=== PATIENT | male | born 1975 | race Caucasian/White ===

== ENCOUNTER → 2016-10-14 11:08 | Outpatient (CLI) | payer MEDICARE ==
[2015-10-18 12:44] VITALS: BMI 25.4
[~2016-10-14 11:08] MED LIST: NORCO 7.5/325 T1 TA1 PO; NORVASC5 MG PO; PERCOCET 10/3251 TA1 PO; PROTONIX40 MG PO; SEROQUEL400 MG PO; VALIUM10 MG PO; VICOPROFEN 7.5/1 TAB PO
== END | disposition home or self-care (01) ==
LOC: D.RAD 09-30 13:00
DX: J70.9 Respiratory conditions due to unspecified external agent (principal)

== ENCOUNTER → 2017-05-11 17:02 | Outpatient (CLI) | payer MEDICARE ==
[2015-10-18 12:44] VITALS: BMI 25.4
[2017-05-11 18:01] LABS: CHOL - HDL RATIO 5.7 ratio (2.3-4.9); LDL-HDL RATIO 3.5 ratio (1.5-3.5)
== END | disposition home or self-care (01) ==
LOC: D.LABREF 17:02
PROVIDERS: Internal Medicine Cardiovascular Disease
DX: E78.5 Hyperlipidemia, unspecified (principal)

== ENCOUNTER → 2018-08-12 09:45 | Outpatient (CLI) | payer MEDICARE ==
[2015-10-18 12:44] VITALS: BMI 25.4
[~2018-08-12 09:45] MED LIST changes: +CIPRO500 MG PO; +FLAGYL500 MG PO; +KLONOPIN1 MG PO; +NEURONTIN 300300 MG; +OMEPRAZOLE20 M1 PO; +PRAVACHOL20 MG; +ROBAXIN500 MG PO; +TORADOL10 MG PO; +ZESTRIL10 MG PO; +ZOFRAN ODT4 MG/UDTAB PO
== END | disposition home or self-care (01) ==
LOC: D.CT 09:45
DX: Z87.442 Personal history of urinary calculi (principal)

== ENCOUNTER → 2018-08-13 09:16 | Outpatient (CLI) | payer MEDICARE ==
[2015-10-18 12:44] VITALS: BMI 25.4
[2018-08-13 12:01] LABS: MEAN PLATELET VOLUME 11.2 fL (7.4-10.4)
[2018-08-13 15:18] LABS: WBC 10.2 10x3/uL (4.8-10.8)
[2018-08-13 15:19] LABS: HEMATOCRIT 44.7 % (42.0-54.0); HEMOGLOBIN 15.6 g/dL (13.5-17.5); LYMPHOCYTES 15.5 % (15-50); MCH 32.4 pg (26.0-34.0); MCHC 34.9 g/dL (31.0-37.0); MCV 92.7 fL (80.0-100.0); NEUTROPHILS 74.5 % (40-80); PLATELET COUNT 222 10x3/uL (130-400); RBC 4.82 10x6/uL (4.20-6.10); RDW 13.4 % (11.5-14.5)
[2018-08-13 15:20] LABS: BASOPHILS 0.3 % (0-2); EOSINOPHILS 2.8 % (0-7); IMMATURE GRANULOCYTES 0.6 % (0-5); MONOCYTES 6.3 % (2-11)
== END | disposition home or self-care (01) ==
LOC: D.LAB 08-11 08:15 → D.RAD 08:00
PROVIDERS: Internal Medicine Gastroenterology
DX: R10.13 Epigastric pain (principal); K21.9 Gastro-esophageal reflux disease without esophagitis; K92.1 Melena

== ENCOUNTER 2018-08-16 21:08 | Emergency (ER) | payer MEDICARE ==
[~2018-08-16] VITALS: Ht 195.6 cm; Wt 90.9 kg
[~2018-08-16 21:08] MED LIST changes: -CIPRO500 MG PO; -FLAGYL500 MG PO; -KLONOPIN1 MG PO; -NEURONTIN 300300 MG; -OMEPRAZOLE20 M1 PO; -PRAVACHOL20 MG; -ROBAXIN500 MG PO; -TORADOL10 MG PO; -ZESTRIL10 MG PO; -ZOFRAN ODT4 MG/UDTAB PO
[2018-08-16 21:27] VITALS: Ht 195.6 cm; Wt 90.9 kg
[2018-08-16] MEDS ORDERED: ZESTRIL10 MG PO (21:29)
[2018-08-16] MEDS ORDERED: PRAVACHOL20 MG (21:30)
[2018-08-16] MEDS ORDERED: OMEPRAZOLE20 M1 PO (21:30)
[2018-08-16] MEDS ORDERED: KLONOPIN1 MG PO (21:30)
[2018-08-16] MEDS ORDERED: NEURONTIN 300300 MG (21:30)
[2018-08-16] MEDS ORDERED: ROBAXIN500 MG PO (21:31)
[2018-08-16 22:41] LABS: APPEARANCE CLEAR (CLEAR); BILIRUBIN NEGATIVE (NEGATIVE); COLOR YELLOW (YELLOW); GLUCOSE NEGATIVE (NEGATIVE); KETONE NEGATIVE (NEGATIVE); NITRITE NEGATIVE (NEGATIVE); PROTEIN TRACE mg/dL (NEGATIVE); UROBILINOGEN NORMAL (NORMAL)
[2018-08-16 22:41] LABS: BASOPHILS 0.2 % (0-2); EOSINOPHILS 2.2 % (0-7); HEMOGLOBIN 15.6 g/dL (13.5-17.5); IMMATURE GRANULOCYTES 0.2 % (0-5); LYMPHOCYTES 31.7 % (15-50); MCH 32.4 pg (26.0-34.0); MCHC 34.7 g/dL (31.0-37.0); MCV 93.6 fL (80.0-100.0); MEAN PLATELET VOLUME 10.2 fL (7.4-10.4); MONOCYTES 6.8 % (2-11); NEUTROPHILS 58.9 % (40-80); PLATELET COUNT 232 10x3/uL (130-400); RBC 4.81 10x6/uL (4.20-6.10); WBC 9.3 10x3/uL (4.8-10.8)
[2018-08-16 22:43] LABS: BACTERIA FEW /hpf (NONE SEEN); EPITHELIAL CELLS 0-5 /hpf (0-5); RED CELLS - URINE 0-5 /hpf (0-5)
[2018-08-16 22:44] LABS: CALCIUM OXALATE CRYSTALS 0-5 /hpf (NONE SEEN)
[2018-08-16 23:00] LABS: ALBUMIN 3.7 g/dL (3.4-5.0); ALKALINE PHOSPHATASE 52 U/L (46-116); ALT (SGPT) 24 U/L (10-68); BILIRUBIN - TOTAL 0.39 mg/dL (0.2-1.3); CALC OSMOLALITY 280 mosm/kg (275-300); CALCIUM 8.3 mg/dL (8.5-10.1); CHLORIDE - SERUM 103 mmol/L (98-107); CREATININE - SERUM 1.1 mg/dL (0.6-1.3); GLUCOSE 100 mg/dL (74-106); POTASSIUM - SERUM 4.1 mmol/L (3.5-5.1); PROTEIN - SERUM 7.6 g/dL (6.4-8.2); SODIUM 139 mmol/L (136-145); UREA NITROGEN 21 mg/dL (7-18); eGFR NON AFRICAN AMERICAN 78 mL/min (90-120)
[2018-08-17] MEDS ORDERED: CIPRO500 MG PO (00:35)
[2018-08-17] MEDS ORDERED: TORADOL10 MG PO (00:35)
[2018-08-17] MEDS ORDERED: FLAGYL500 MG PO (00:35)
[2018-08-17 02:23] VITALS: BP 125/87
== END 2018-08-17 01:01 | disposition home or self-care (01) ==
LOC: D.ER 21:08
PROVIDERS: Family Medicine
DX: K52.9 Noninfective gastroenteritis and colitis, unspecified (principal); N41.9 Inflammatory disease of prostate, unspecified; F17.200 Nicotine dependence, unspecified, uncomplicated

== ENCOUNTER → 2018-08-20 14:35 | Outpatient (CLI) | payer MEDICARE ==
[2018-08-16 21:27] VITALS: BMI 23.7
[~2018-08-20 14:35] MED LIST changes: +CIPRO500 MG PO; +FLAGYL500 MG PO; +KLONOPIN1 MG PO; +NEURONTIN 300300 MG; +OMEPRAZOLE20 M1 PO; +PRAVACHOL20 MG; +ROBAXIN500 MG PO; +TORADOL10 MG PO; +ZESTRIL10 MG PO; +ZOFRAN ODT4 MG/UDTAB PO
== END | disposition home or self-care (01) ==
LOC: D.CT 14:35
DX: Z87.442 Personal history of urinary calculi (principal)

== ENCOUNTER 2018-08-27 00:21 | Emergency (ER) | payer MEDICARE ==
[~2018-08-27] VITALS: Ht 195.6 cm; Wt 86.8 kg
[~2018-08-27 00:21] MED LIST changes: -ZOFRAN ODT4 MG/UDTAB PO
[2018-08-27 00:25] VITALS: Ht 195.6 cm; Wt 86.8 kg
[2018-08-27 00:57] LABS: BASOPHILS 0.2 % (0-2); EOSINOPHILS 0 % (0-7); IMMATURE GRANULOCYTES 0.2 % (0-5); LYMPHOCYTES 21.8 % (15-50); MCH 32.5 pg (26.0-34.0); MCHC 34.8 g/dL (31.0-37.0); MCV 93.3 fL (80.0-100.0); MEAN PLATELET VOLUME 10.1 fL (7.4-10.4); MONOCYTES 7.1 % (2-11); NEUTROPHILS 70.7 % (40-80); PLATELET COUNT 231 10x3/uL (130-400); RBC 4.93 10x6/uL (4.20-6.10); RDW 13.1 % (11.5-14.5); WBC 11.2 10x3/uL (4.8-10.8)
[2018-08-27 01:08] LABS: APTT 28.5 SECONDS (22.8-39.4); INR 1.14 (0.85-1.17); PROTIME 14.1 SECONDS (11.6-15.0)
[2018-08-27 01:10] LABS: ALBUMIN 3.8 g/dL (3.4-5.0); ALKALINE PHOSPHATASE 44 U/L (46-116); ALT (SGPT) 19 U/L (10-68); BILIRUBIN - TOTAL 0.44 mg/dL (0.2-1.3); CALC OSMOLALITY 281 mosm/kg (275-300); CALCIUM 8.7 mg/dL (8.5-10.1); CARBON DIOXIDE 28.2 mmol/L (21.0-32.0); CHLORIDE - SERUM 104 mmol/L (98-107); CREATININE - SERUM 1.1 mg/dL (0.6-1.3); GLUCOSE 104 mg/dL (74-106); POTASSIUM - SERUM 3.7 mmol/L (3.5-5.1); PROTEIN - SERUM 7.3 g/dL (6.4-8.2); SODIUM 141 mmol/L (136-145); UREA NITROGEN 14 mg/dL (7-18); eGFR NON AFRICAN AMERICAN 78 mL/min (90-120)
[2018-08-27] MEDS ORDERED: ZOFRAN ODT4 MG/UDTAB PO (03:22)
[2018-08-27 03:57] VITALS: BP 124/71
== END 2018-08-27 03:57 | disposition home or self-care (01) ==
LOC: D.ER 00:21
PROVIDERS: Family Medicine
DX: N50.812 Left testicular pain (principal); K62.5 Hemorrhage of anus and rectum; J44.9 Chronic obstructive pulmonary disease, unspecified; Z86.19 Personal history of other infectious and parasitic diseases; F17.200 Nicotine dependence, unspecified, uncomplicated

== ENCOUNTER 2018-11-12 02:55 | Observation (INO) | payer MEDICARE ==
--- NOTE | ~2018-11-12 | HEMODYNAMI ---
PATIENT:NOEMI LOYD MEDICAL RECORD: [id number] : 73 [facility] ADMISSION DATE: 11/12/18 Generatedon:11/14/201812:23 Patient name: NOEMI LOYD Patient #: [id number] SSN: : 1975 Date of study: 11/14/2018 Page: Of Hemodynamic Procedure Report Patient Data Patient Demographics Procedure consent was obtained First Name: NOEMI Gender: Male Last Name: EVERT : 1975 [facility] Initial: AYDIN Age: 42 year(s) Patient #: [id number] Race: Unknown Additional ID: [id number] Contact details [address]: [address] [place] [address] State: [place] City: [place] Zip code: [address] Past Medical History Allergies Allergen Reaction Date Comments Reported Other allergy 11/14/2018 [facility] Admission Admission Data Admission Date: 11/12/2018 Admission Time: 5:02 Room #: D.2107 Lab Results Lab Result Date: 11/14/2018 Lab Result Time: 0:00 Biochemistry Name Units Result Min Max BUN mg/dl 17 --(---*)-- 7 18 Creatinine mg/dl 0.9 --(-*--)-- 0.6 1.3 CBC Name Units Result Min Max Hematocrit % 43.6 --(*---)-- 42 54 Hemoglobin g/dl 15 --(-*--)-- 13.5 17.5 Procedure Procedure Types Cath Procedure Diagnostic Procedure LHC LHC w/Coronaries Procedure Description Procedure Date Procedure Date: 11/14/2018 Procedure Start Time: 12:16 Procedure End Time: 12:23 Procedure Staff Name Function Kaiser Cedillo MD Performing Physician Roosevelt Magdaleno RT Monitor Malu Knox RT Scrub Trey Wayne RN Nurse Procedure Data Cath Procedure Fluoroscopy Diagnostic fluoroscopy Total fluoroscopy Time: 0.7 time: 0.7 min min Diagnostic fluoroscopy Total fluoroscopy dose: 264 dose: 264 mGy mGy Contrast Material Contrast Material Type Amount (ml) Isovue 300 21 Entry Location Entry Primary Successful Side Size Upsize Upsize Entry Closure Tripp ccessful Closure Location (Fr) 1 (Fr) 2 (Fr) Remarks Device Remarks Radial Right 6 Fr Mechanical artery Short Compression Estimated blood loss: 10 ml Diagnostic catheters Device Type Used For End Catheter Placement DIAGNOSTIC Cary 110cm 5 Procedure Fr catheter ([id number]) Procedure Complications No complications Procedure Medications Medication Administration Route Dosage Oxygen etCO2 Nasal cannula 2 l/min Lidocaine 2% added to field 20 Heparin Flush Bag added to field 2 bags (1000units/500ml NS) 0.9% NaCl I.V. 100 ml/hr Radial Cocktail I.A. 1 syringe (Verapamil 2mg/Nitro 400mcg/Heparin 1500units) Versed I.V. 2 mg Fentanyl I.V. 100 mcg Versed I.V. 2 mg Fentanyl I.V. 100 mcg Hemodynamics Rest HGB: 15 (g/dl) Heart Rate: 55 (bpm) Pressure Samples Time Site Value (mmHg) Purpose Heart Use Rate(bpm) 12:19 AO 97/62(79) Snapshot 58 Snapshots Pre Cath Intra NCS Post Cath Vital Signs Time Heart Resp SPO2 etCO2 NIBP Rhythm Pain Sedation Rate (ipm) (%) (mmHg) (mmHg) Status Level (bpm) 12:09:15 56 29 100 21.6 108/68(80) NSR 0 (11) 10(A) , No pain 12:13:21 56 16 94 0 107/67(83) NSR 0 (11) 10(A) , No pain 12:17:25 51 14 97 29.1 108/61(77) NSR 0 (11) 10(A) , No pain 12:20:46 58 12 96 44.8 Auto NIBP NSR 0 (11) 10(A) off , No pain 12:21:35 55 14 95 32 103/55(82) NSR 0 (11) 10(A) , No pain Medications Time Medication Route Dose Verified Delivered Reason Notes Effectiveness by by 12:10:39 Oxygen etCO2 2 l/min Kaiser Yang used for Nasal Nguyen Wayne reliability specialist cannula 12:10:47 Lidocaine 2% added 20ml Kaiser Saab for local to vial Nguyen Cedillo MD anesthetic field 12:10:53 Heparin Flush added 2 bags Kaiser Saab used for Bag to Nguyen Cedillo MD procedure (1000units/500ml field NS) 12:11:03 0.9% NaCl I.V. 100 Kaiser Yang Per ml/hr Nguyen Wayne RN physician 12:16:09 Versed I.V. 2 mg Kaiser Yang for sedation Nguyen Wayne RN 12:16:17 Fentanyl I.V. 100 mcg Kaiser Yang for sedation Nguyen Wayne RN 12:17:47 Radial Cocktail I.A. 1 Kaiser Saab for (Verapamil syringe Nguyen Cedillo MD vasodilation 2mg/Nitro 400mcg/Heparin 1500units) 12:18:41 Versed I.V. 2 mg Kaiser Yang for sedation Nguyen Wayne RN 12:18:44 Fentanyl I.V. 100 mcg Kaiser Yang for sedation Nguyen Wayne RN Procedure Log Time Note 11:42:21 Signed procedure consent form obtained from patient. 11:42:29 Diagnostic Cath status Urgent 11:42:31 Time tracking: Call back (After hours or weekends) 11:42:35 Plan of Care:Hemodynamics will remain stable., Cardiac rhythm will remain stable., Comfort level will be maintained., Respiratory function will remain adequate., Patient/ family verbilizes understanding of procedure., Procedure tolerated without complication., Recovers from procedure without complications.. 11:43:01 Roosevelt GUERRIER(R) sent for patient. Start room use. 11:52:49 H&P Date Dictated: 11/12/2018 Within 30 days and on chart.. 11:53:03 Patient allergic to Other allergyHALDOL 11:53:27 Lab Result : Creatinine 0.9 mg/dl 11:53:27 Lab Result : BUN 17 mg/dl 11:53:27 Lab Result : Hemoglobin 15 g/dl 11:53:27 Lab Result : Hematocrit 43.6 % 11:59:18 Patient received from Med II to CCL 1 Alert and oriented. Tansferred to table in Supine position. 11:59:19 Warm blankets applied, and chato hugger turned on for patient comfort. 11:59:20 Correct patient and procedure confirmed by team. 11:59:20 ECG and BP/O2 sat monitors applied to patient. 12:08:09 Vital chart was started 12:10:04 Baseline sample Acquired. 12:10:22 Rhythm: sinus bradycardia 12:10:23 Full Disclosure recording started 12:10:24 Pre-procedure instructions explained to patient. 12:10:24 Pre-op teaching completed and patient verbalized understanding. 12:10:27 Family unavailable. 12:10:29 Patient NPO since Midnight. 12:10:31 Is the patient allergic to Iodine/contrast media? No. 12:10:35 Is patient on blood thinner?Yes 12:10:38 ACC The patient was administered the following blood thiners within the last 24 hours: ACCPlavix 12:10:39 Oxygen 2 l/min etCO2 Nasal cannula was administered by Trey Wayne RN; used for procedure; 12:10:40 Patient diabetic? No. 12:10:43 Previous problem with sedation/anesthesia? No ? 12:10:43 Snore? Yes 12:10:47 Lidocaine 2% 20ml vial added to field was administered by Kaiser Cedillo MD; for local anesthetic; 12:10:51 Sleep apnea? Yes 12:10:53 Heparin Flush Bag (1000units/500ml NS) 2 bags added to field was administered by Kaiser Cedillo MD; used for procedure; 12:10:53 Deviated septum? No 12:10:54 Opens mouth fully? Yes 12:11:00 Sticks out tongue? Yes 12:11:03 0.9% NaCl 100 ml/hr I.V. was administered by Trey Wayne RN; Per physician; 12:11:04 Airway obstruction? Yes COPD 12:11:07 Dentures? No ? 12:11:09 Pre procedure: right dorsailis pedis pulse 1+ Palpable, but thready & weak; easily obliterated 12:11:11 Modified Bart's test Ulnar < 7 seconds 12:11:29 Patient pain scale 3/10 Physician notified.. 12:11:34 IV patent on arrival in right forearm with 0.9% NaCl at [facility]. 12:11:36 Lab results completed and on chart. 12:11:39 Right Radial & Right Groin area was prepped with chlora-prep and draped in sterile fashion 12:11:40 Alarms reviewed by R. N. 12:11:41 Sharps counted by scrub and verified by R.N. 12:11:42 Physician paged 12:15:01 --------ALL STOP TIME OUT------ 12:15:01 Final Timeout: patient, procedure, and site verified with staff and physician. All members of the team are in agreement. 12:15:03 Right Radial & Right Groin site verified by team. 12:15:06 Maximum allowable Isovue 300 dose 300ml. Physician notified. (300ml for normal creatinines. For patients with creatinine of 1.7 or higher multiply weight(kg) x 5 divided by creatinine.) 12:15:10 Fire Safety Assessment: A--An alcohol-based skin anteseptic being used preoperatively., C--Open oxygen or nitrous oxide is being used., D--An ESU, laser, or fiber-optic light is being used. 12:15:13 Physical assessment completed. ASA score P 2 - A patient with mild systemic disease as per Kaiser Cedillo MD. 12:15:16 Sedation plan: IV Moderate Sedation Medication:Versed, Fentanyl 12:16:09 Versed 2 mg I.V. was administered by Trey Wayne RN; for sedation; 12:16:17 Fentanyl 100 mcg I.V. was administered by Trey Wayne RN; for sedation; 12:16:18 Use device set Radial Dx or PCI 12:16:19 Tegaderm 4 x 4 (1626W) opened to sterile field. 12:16:20 ACIST Manifold (69016) opened to sterile field. 12:16:20 ACIST Hand Control (63191) opened to sterile field. 12:16:21 ACIST Syringe (71772) opened to sterile field. 12:16:22 Medline Cath Pack ([id number]) opened to sterile field. 12:16:22 Bag Decanter () opened to sterile field. 12:16:22 DIAGNOSTIC WIRE .035 260cm J wire (110270) opened to sterile field. 12:16:23 MBrace Wrist Support ([id number]) opened to sterile field. 12:16:24 SHEATH 6FR Slender (98-1241) opened to sterile field. 12:16:28 Procedure started. 12:16:32 Local anesthetic to right radial artery with Lidocaine 2% by Kaiser Cedillo MD.INITIAL ACCESS ONLY 12:16:52 A 6 Fr Short sheath was inserted into the Right Radial artery 12:16:59 Zero performed for pressure channel P1 12:17:06 A DIAGNOSTIC Cary 110cm 5 Fr catheter ([id number]) was advanced over the wire and used for Procedure. 12:17:47 Radial Cocktail (Verapamil 2mg/Nitro 400mcg/Heparin 1500units) 1 syringe I.A. was administered by Kaiser Cedillo MD; for vasodilation; 12:18:17 LV angiography performed. 12:18:19 LV gram done using MILLS 12:18:26 EF : 60 % 12:18:41 Versed 2 mg I.V. was administered by Trey Wayne RN; for sedation; 12:18:43 Injector settings: Ml/sec: 7, Volume: 15, 12:18:44 Fentanyl 100 mcg I.V. was administered by Trey Wayne RN; for sedation; 12:18:52 LCA angiography performed. 12:19:43 RCA angiography performed. 12:19:44 Catheter removed. 12:19:46 TR BAND Standard (NON45NLS) opened to sterile field. 12:19:55 Sheath removed intact; hemostasis achieved with Mechanical Compression to the Right Radial artery. 12:19:57 Procedure ended.(Physican Out) 12:20:17 Fluoroscopy time 00.70 minutes. 12:20:20 Fluoroscopy dose: 264 mGy 12:20:20 Flurop Dose total: 264 12:20:24 Contrast amount:Isovue 300 21ml. 12:20:26 Sharps counted by scrub and verified by R.N. 12:20:28 TR band inflated with 10cc of air. 12:20:29 Insertion/operative site no bleeding no hematoma. 12:20:31 Post Procedure Pulses reassessed and unchanged 12:20:33 Post-procedure physical assessment completed. ASA score P 2 - A patient with mild systemic disease as per Kaiser Cedillo MD. 12:20:36 Post procedure rhythm: unchanged. 12:20:39 Estimated blood loss: 10 ml 12:20:40 Post procedure instruction explained to patient.Patient verbalizes understanding. 12:20:41 Patient needs reinforcement of post procedure teaching. 12:20:42 Procedure and supply charges have been captured, reviewed, submitted and are correct. 12:20:44 Procedure Complication : No complications 12:21:17 Vital chart was stopped 12:21:17 See physician's report for complete and final results. 12:21:20 Report given to PCU. 12:21:22 Patient transfered to PCU with Bed. 12:23:16 Procedure ended. 12:23:16 Full Disclosure recording stopped 12:23:18 End room use (Document Last) Device Usage Item Name Manufacture Quantity Catalog Hospital Part Current Minimal Lot# / Number Charge Number Stock Stock Serial# Code Tegaderm 4 3M 1 1626W [id number] 551596 732005 5 x 4 (1626W) ACIST Acist 1 48357 498974 403857 432052 5 Manifold Medical (48494) Systems Inc ACIST Hand Acist 1 61932 145789 217919 335648 5 Control Medical (87183) Systems Inc ACIST Acist 1 97564 559370 433584 050247 20 Syringe Medical (44151) Systems Inc Medline Medline 1 [id number] 508845 06576 915273 5 Cath Pack ([id number]) Bag Microtek 1 2001S 654811 00037 991164 5 Decanter Medical Inc. (2001S) DIAGNOSTIC [place] 1 344004 056384 842815 374385 30 WIRE .035 260cm J wire (791342) MBrace Advanced 1 140-0250-00 577353 36418 637951 5 Wrist Vascular Support Dynamics ([id number]) SHEATH 6FR Terumo 1 [id number] 725016 380543 446130 5 Slender (80-1060) DIAGNOSTIC Terumo 1 40-3642 495370 206779 574746 5 Cary 110cm 5 Fr catheter (993312) TR BAND Terumo 1 [id number] 994620 424820 470090 40 Standard ([id number]) Signature Audit [place] Stage Time Signature Unsigned Intra-Procedure 11/14/2018 Roosevelt Magdaleno 12:23:33 PM RT(R) Signatures Monitor : Roosevelt Magdaleno RT Signature : Date : Time : [facility] [address] [place] [address]
[~2018-11-12 02:55] MED LIST changes: +ZOFRAN ODT4 MG/UDTAB PO
[2018-11-12 03:15] LABS: BASOPHILS 0.2 % (0-2); EOSINOPHILS 3.1 % (0-7); HEMATOCRIT 44.7 % (42.0-54.0); HEMOGLOBIN 15.8 g/dL (13.5-17.5); IMMATURE GRANULOCYTES 0.2 % (0-5); LYMPHOCYTES 21.4 % (15-50); MCH 33.3 pg (26.0-34.0); MCHC 35.3 g/dL (31.0-37.0); MCV 94.1 fL (80.0-100.0); MEAN PLATELET VOLUME 9.7 fL (7.4-10.4); MONOCYTES 7.1 % (2-11); RBC 4.75 10x6/uL (4.20-6.10); RDW 12.9 % (11.5-14.5)
[2018-11-12 03:16] LABS: PLATELET COUNT 177 10x3/uL (130-400)
[2018-11-12 03:18] VITALS: BP 106/71
[2018-11-12 03:23] LABS: APTT 28.9 SECONDS (22.8-39.4); INR 1.14 (0.85-1.17); PROTIME 14.1 SECONDS (11.6-15.0)
[2018-11-12 03:39] LABS: ALBUMIN 3.9 g/dL (3.4-5.0); ALKALINE PHOSPHATASE 45 U/L (46-116); ALT (SGPT) 21 U/L (10-68); BILIRUBIN - TOTAL 0.56 mg/dL (0.2-1.3); CALC OSMOLALITY 279 mosm/kg (275-300); CALCIUM 8.9 mg/dL (8.5-10.1); CARBON DIOXIDE 26.8 mmol/L (21.0-32.0); CHLORIDE - SERUM 104 mmol/L (98-107); GLUCOSE 99 mg/dL (74-106); POTASSIUM - SERUM 4.2 mmol/L (3.5-5.1); PROTEIN - SERUM 7.1 g/dL (6.4-8.2); SODIUM 140 mmol/L (136-145); UREA NITROGEN 15 mg/dL (7-18); eGFR NON AFRICAN AMERICAN 87 mL/min (90-120)
[2018-11-12 03:43] LABS: CKMB 1.8 U/L (0.0-3.6); CREATINE KINASE 175 UL (21-232); THYROID STIMULATING HORMONE 2.32 uIU/mL (0.36-3.74)
[2018-11-12 03:47] LABS: TROPONIN-I < 0.017 ng/mL (0.000-0.060)
--- NOTE | 2018-11-12 03:49 | NUR ---
PT GIVEN URINAL
--- NOTE | 2018-11-12 04:01 | NUR ---
URINE SENT TO LAB
[2018-11-12 04:09] LABS: APPEARANCE CLEAR (CLEAR); BILIRUBIN NEGATIVE (NEGATIVE); COLOR YELLOW (YELLOW); GLUCOSE NEGATIVE (NEGATIVE); KETONE NEGATIVE (NEGATIVE); NITRITE NEGATIVE (NEGATIVE); PROTEIN NEGATIVE (NEGATIVE); SPECIFIC GRAVITY 1.015 (1.005-1.020); UROBILINOGEN NORMAL (NORMAL)
--- NOTE | 2018-11-12 05:13 | NUR ---
PT GIVEN WATER TO DRINK. DENIES ANY FURTHER NEEDS AT THIS TIME. FAMILY AT BEDSIDE, WILL CONTINUE TO MONITOR.
--- NOTE | 2018-11-12 05:39 | NUR ---
PT GIVEN BLANKETS. DENIES ANY FURTHER NEEDS. FAMILY AT BEDSIDE.
--- NOTE | 2018-11-12 06:44 | NUR ---
PT ARRIVED VIA STRETCHER BY HOSPITAL STAFF. NO ACUTE S/S OF DISTRESS NOTED. BED IN LOW POSITION WITH CALL LIGHT IN REACH. SIDE RAILS UP X 2. WILL CONTINUE TO MONITOR PT.
[2018-11-12 07:38] VITALS: BP 107/66; BMI 20.2
[2018-11-12 07:56] VITALS: BP 107/66
[2018-11-12 09:04] LABS: UDS - AMPHET NEGATIVE QUAL (NEGATIVE); UDS - BARB NEGATIVE QUAL (NEGATIVE); UDS - BENZO NEGATIVE QUAL (NEGATIVE); UDS - COCAINE NEGATIVE QUAL (NEGATIVE); UDS - OPIATE POSITIVE QUAL (NEGATIVE); UDS - PCP NEGATIVE QUAL (NEGATIVE); UDS - THC POSITIVE QUAL (NEGATIVE)
--- NOTE | 2018-11-12 09:16 | NUR ---
PATIENT HAS A NEUROSTIMULATOR. MRI NOT POSSIBLE. NOTIFIED NURSE, CHAR, THAT MRI WILL NOT BE PERFORMED. WILL NOTIFY ER, WELL.
--- NOTE | 2018-11-12 09:17 | NUR ---
ALERT AND ORIENTED WITH IVF INFUSING TO RT. F/A. SLIGHT WEAKNESS NOTED TO RUE BUT STATES IS GETTING BETTER. UNABLE TO OBTAIN MRI BRAIN DUE TO BACK STIMULATOR. DENIES ANY PAIN OR DISCOMFORT AT THIS TIME.ENCOURAGED TO USE CALL LIGHT FOR ASSIST.
[2018-11-12 12:20] VITALS: BP 107/73
[2018-11-12 12:41] LABS: CREATINE KINASE 137 UL (21-232)
[2018-11-12 12:43] LABS: TROPONIN-I < 0.017 ng/mL (0.000-0.060)
[2018-11-12 15:56] VITALS: BP 109/70
--- NOTE | 2018-11-12 16:30 | NUR ---
CALLED TO PATIENT ROOM WITH COMPLAINS OF ANXIETY EPISODE AND HAVING TROUBLE DEALING BUT DOESN'T WANT TO DISCUSUSS AT THIS TIME. KENNY GROSSMAN NOTIFIED WITH NEW ORDER NOTED.
--- NOTE | 2018-11-12 17:10 | NUR ---
PT. COMPLAINS OF CHEST PAIN WITH TENDERNESS NOTED ON PALPATION OF CHEST WALL. SKIN WARM AND DRY. TELEMETRY STRIP RAN WITH PACE 68. V/S 120/73 63 20 99 PUSLE OX 97%.
--- NOTE | 2018-11-12 17:34 | NUR ---
VERBALIZES FEELING BETTER AND IS STILL HUNGRY AFTER DINNER WANTING EXTRA SERVING. PT GIVEN SUPPLEMENTAL TRAY AND APPRECIATIVE. DENIES ANY CHEST PAIN OR DISCOMFORT.
[2018-11-12 18:00] LABS: CKMB 1.1 U/L (0.0-3.6); CREATINE KINASE 139 UL (21-232)
[2018-11-12 18:02] LABS: TROPONIN-I < 0.017 ng/mL (0.000-0.060)
--- NOTE | 2018-11-12 18:22 | NUR ---
PATIENT REFUSES SCD'S AND UP ADLIB
--- NOTE | 2018-11-12 19:31 | NUR ---
RECEIVED REPORT, WILL ASSUME CARE OF PT, COMPLAINS OF BACK PAIN, GAVE NORCO ORDER, BED IS LOW, SRX2, CALL LIGHT IN REACH, WILL CONTINUE PLAN OF CARE
--- NOTE | 2018-11-12 19:39 | NUR ---
PT IS UP GETTING INN SHOWER
[2018-11-12 20:00] VITALS: BP 106/63
--- NOTE | 2018-11-12 22:00 | NUR ---
WIL ABDALLA GARCIA [phone] CALL, SHE SAID PT IS GOING TO LEAVE AND COME HOME AND SHOOT HIS SELF, I SPOKE WITH PT, HE STATES HE JUSTS WANTS HER TO BRING HIS JEEP AND KEYS INCASE HE HAS TO LEAVE, HE DID SAY WHY SHOULD I STAY AND GET FIXED JUST SO I CAN CONTINUE TO LIVE THIS WAY, JEM WOLF IS GOING TI TALK TO HIM
--- NOTE | 2018-11-12 22:33 | NUR ---
PT AGREE TO STAY AT THIS TIME, GAVE ATIVAN ORDERED TO HELP WITH ANXITY
--- NOTE | 2018-11-12 22:59 | NUR ---
PT SAYS HE IS FEELING A LITTLE BETTER, GAVE HIM A SANDWICH AND APPLE JUICE, PT WILL BE NPO AFTER MIDNIGHT
--- NOTE | 2018-11-12 23:08 | NUR ---
PRIMARY NURSE REPORTED PT SAYING HE NEEDED TO LEAVE/HOME ISSUES/GIRLFRIEND CALLED NURSE AND TOLD HER THAT PT WAS THREATENING TO LEAVE HOSPITAL AND WAS SUICIDAL. 1:1 WITH PATIENT. PT IS TEARFUL. UPSET AND OBVIOUSLY DEPRESSED. HE REPORTS GIRLFRIEND CALLED UP TO HOSPITAL AND IS SAYING SHE IS LEAVING HIM AND HE FEELS HOPELESS AND HELPLESS. REVIEWED WITH PATIENT HIS MEDICAL ISSUES THAT BROUGHT HIM TO THE HOSPITAL AND THAT HE HIMSELF ADMITS THAT HE IS STILL HAVING SOME LEFT SIDED ISSUES. HE IS SCHEDULED FOR FURTHER TESTING IN THE AM. ENCOURAGED PT TO TAKE THE ANTI ANXIETY MEDICATION THAT PRIMARY NURSE OFFERED AND REST FOR THE NIGHT. ATTEMPTED TO CALL HIS GIRLFRIEND TO ASK HER TO LET PATIENT REST TONIGHT AND THEY CAN TALK TOMORROW. GIRLFRIEND/LIANNE DOES NOT ANSWER FOR HOSPITAL NUMBER OF EVEN TO PATIENT'S CELL NUMBER. ENCOURAGED PT TO LET THAT INDICATE IT WAS TIME TO SLEEP. CALL CAME IN FROM A FRIEND/AMARA AND PT LET NURSE TALK TO FRIEND AND TELL HIM HOW PATIENT WAS UPSET/DEPRESSED AND NOW FRIEND IS PROVIDING SUPPORT VIA PHONE CALL TO PATIENT. IV ATIVAN HAS BEEN ADMINISTERED AND PT IS TALKING TO HIS FRIEND. WILL MONITOR AND CONTINUE TO PROVIDE SUPPORT.
[2018-11-12 23:29] LABS: CKMB 1.3 U/L (0.0-3.6); CREATINE KINASE 142 UL (21-232)
[2018-11-12 23:30] LABS: TROPONIN-I < 0.017 ng/mL (0.000-0.060)
[2018-11-13] VITALS: BP 110/59
--- NOTE | 2018-11-13 00:36 | NUR ---
PT IS SLEEPING AT THIS TIME, BED IS LOW, SRX1, CALL LIGHT IN REACH, WILL CONTINUE PLAN OF CARE
--- NOTE | 2018-11-13 01:47 | NUR ---
SLEEPING, NO DISTRESS NOTICE, BED IS LOW, SRX2, CALL LIGHT IN REACH, WILL CONTINUE PLAN OF CARE
[2018-11-13 03:00] VITALS: BP 109/63
--- NOTE | 2018-11-13 03:35 | NUR ---
I have reviewed this patient and I concur with the Shift Assessment completed by the Licensed Practical Nurse today this shift.
[2018-11-13 05:13] LABS: CALC OSMOLALITY 280 mosm/kg (275-300); CALCIUM 8.6 mg/dL (8.5-10.1); CARBON DIOXIDE 24.8 mmol/L (21.0-32.0); CHLORIDE - SERUM 108 mmol/L (98-107); CREATININE - SERUM 0.9 mg/dL (0.6-1.3); GLUCOSE 100 mg/dL (74-106); POTASSIUM - SERUM 4.5 mmol/L (3.5-5.1); SODIUM 140 mmol/L (136-145); UREA NITROGEN 17 mg/dL (7-18); eGFR NON AFRICAN AMERICAN > 90 mL/min (90-120)
[2018-11-13 05:34] LABS: HEMATOCRIT 43.6 % (42.0-54.0); LYMPHOCYTES 27.8 % (15-50); MCH 32.8 pg (26.0-34.0); MCHC 34.4 g/dL (31.0-37.0); MCV 95.2 fL (80.0-100.0); NEUTROPHILS 64.2 % (40-80); PLATELET COUNT 162 10x3/uL (130-400); RBC 4.58 10x6/uL (4.20-6.10); RDW 13.1 % (11.5-14.5)
[2018-11-13 05:39] LABS: WBC 8.9 10x3/uL (4.8-10.8)
[2018-11-13 05:40] LABS: BASOPHILS 0.3 % (0-2); EOSINOPHILS 5.4 % (0-7); MONOCYTES 6.5 % (2-11)
--- NOTE | 2018-11-13 07:10 | NUR ---
REPORT RECEIVED. WILL CONTINUE WITH POC. PT CURRENTLY LYING SEMI FOWLERS. CALL LIGHT W/I REACH. PT IS RESTING AT THE MOMENT. RR EVEN AND UNLABORED ON RA. NS INFUSING @75ML/HR VIA R.FOR PIV. NO S/S OF DISTRESS NOTED. WILL CTM.
[2018-11-13 08:44] VITALS: BP 97/59
[2018-11-13 13:31] VITALS: BP 106/72
--- NOTE | 2018-11-13 15:09 | NUR ---
I have reviewed this patient and I concur with the Shift Assessment completed by the Licensed Practical Nurse today this shift.
[2018-11-13] MEDS ORDERED: BUPROPION HCL150 M1 PO (15:39)
[2018-11-13] MEDS ORDERED: SEROQUEL50 MG PO (15:39)
[2018-11-13] MEDS ORDERED: ABILIFY2 MG PO (15:40)
--- NOTE | 2018-11-13 19:30 | NUR ---
EVENING ROUNDS MADE. PT LAYING IN BED WITH SIGNIFICANT OTHER. INFOMRED PT I WOULD BE HIS PRIMARY NURSE FOR THE NIGHT. PT DENIES PAIN AT THIS TIME. NO CONCERNS AT THIS TIME. FALL PRECAUTIONS IN PLACE. WILL CTM.
[2018-11-13 19:35] VITALS: BP 97/58
--- NOTE | 2018-11-13 20:28 | NUR ---
PT C/O MIGRAINE. PAIN 10/10 ON A 10 POINT PAIN SCALE. NORCO GIVEN WITH NIGHT MEDS. MEDS TAKEN WITHOUT DIFFICULTY. A/O X 4. UP AB DONI. O2 @ 2L VIA NC. IV TO R FA SL. NO REDNESS OR EDMEA NOTED, PATENT. PT TO BE NPO P MIDNIGHT FOR HEART CATH TOMORROW. NORMAL SINUS ON TELE. LUNGS CLEAR. NO EDEMA NOTED. ALL LIGHTS TURNED OFF FOR LOW STIMULI. ICE PACK GIVEN. FALL PRECAUTIONS IN PLACE. BED LOWERED AND LOCKED. CL IN REACH. WILL CTM.
[2018-11-14] VITALS: BP 90/53
--- NOTE | 2018-11-14 02:41 | NUR ---
PT STATED HE WAS ANXIOUS ABOUT HEART CATH THAT IS TO BE DONE TODAY. GAVE PT ATIVAN 0.5 MG TO R FA IV. IV PATENT, NO REDNESS OR EDEMA NOTED. FAMILY AT BEDSIDE. PT ASKED WHAT ALL WAS INVOLED WITH PREOP OF A HEART CATH. ALL QUESTIONS ANSWERED. PT SEEMS MORE AT EASE. FALL PRECAUTIONS IN PLACE. WILL CTM.
[2018-11-14 04:00] VITALS: BP 89/52
[2018-11-14 05:11] LABS: BASOPHILS 0.2 % (0-2); EOSINOPHILS 2.9 % (0-7); HEMOGLOBIN 15.3 g/dL (13.5-17.5); IMMATURE GRANULOCYTES 0.1 % (0-5); LYMPHOCYTES 28.3 % (15-50); MCH 32.3 pg (26.0-34.0); MCV 95.1 fL (80.0-100.0); MEAN PLATELET VOLUME 10.1 fL (7.4-10.4); NEUTROPHILS 60.5 % (40-80); PLATELET COUNT 164 10x3/uL (130-400); RBC 4.73 10x6/uL (4.20-6.10); RDW 13.1 % (11.5-14.5); WBC 8.4 10x3/uL (4.8-10.8)
[2018-11-14 05:25] LABS: ALBUMIN 3.5 g/dL (3.4-5.0); ALKALINE PHOSPHATASE 42 U/L (46-116); ALT (SGPT) 16 U/L (10-68); BILIRUBIN - TOTAL 0.28 mg/dL (0.2-1.3); CALC OSMOLALITY 283 mosm/kg (275-300); CALCIUM 8.6 mg/dL (8.5-10.1); CARBON DIOXIDE 27.1 mmol/L (21.0-32.0); CHLORIDE - SERUM 107 mmol/L (98-107); CREATININE - SERUM 0.9 mg/dL (0.6-1.3); GLUCOSE 110 mg/dL (74-106); POTASSIUM - SERUM 4.2 mmol/L (3.5-5.1); PROTEIN - SERUM 6.7 g/dL (6.4-8.2); SODIUM 141 mmol/L (136-145); UREA NITROGEN 17 mg/dL (7-18); eGFR NON AFRICAN AMERICAN > 90 mL/min (90-120)
--- NOTE | 2018-11-14 07:00 | NUR ---
RECEIVED REPORT. ASSUMED CARE OF PATIENT. PATIENT IN BED WITH EYES CLOSED. RESP EVEN AND UNLABORED. FEMALE VISITOR IN BED ASLEEP WITH PATIENT. CALL LIGHT WITHIN REACH. NO DISTRESS. PATIENT REMAINS NPO FOR HEART CATH THIS AM, BUT REFUSES TO WEAR TELEMETRY AND WAS RETURNED TO MONITOR TECHS LAST PM.
[2018-11-14 09:25] VITALS: BP 115/70
--- NOTE | 2018-11-14 10:53 | NUR ---
RESTING IN BED. FEMALE VISITOR AT BEDSIDE. PATIENT ANXIOUS, FEMALE VISITOR CONTRIBUTING TO PATIENT ANXIETY. PATIENT CONTINUES TO AWAIT BEING TAKEN TO BUYER GRAIN.
--- NOTE | 2018-11-14 11:09 | NUR ---
SPOKE WITH [place] IN STACK ATTENDANT REGARDING PATIENT VERY ANXIOUS DESPITE ALL INTERVENTIONS PROVIDED INCLUDING MEDS. RECEIVED NEW ORDER FOR 1 TIME ADDITIONAL DOSE OF VALIUM 5MG AND LET HIM KNOW IT WILL BE ABOUT ONE HOUR BEFORE THEY RETRIEVE HIM FOR HIS HEART CATH.
--- NOTE | 2018-11-14 11:30 | NUR ---
ADDITIONAL DOSE OF VALIUM ADMINISTERED ORDERED. NO DISTRESS.
--- NOTE | 2018-11-14 11:56 | NUR ---
PATIENT LEFT UNIT VIA BED AT THIS TIME FOR TRAINING AND DEVELOPMENT OFFICER. NO DISTRESS.
--- NOTE | 2018-11-14 12:33 | NUR ---
PATIENT RETURNED FROM SAFETY COUNSELOR AT THIS TIME. PATIENT HAD CLEAN HEART CATH. TR BAND TO RIGHT WRIST. PATIENT WITH EYES CLOSED, EASILY AROUSED. RESP EVEN AND UNLABORED. PERIPHERAL PULSES PATENT. IV FLUIDS INFUSING ORDERED. NO DISTRESS.
[2018-11-14 12:47] VITALS: BP 96/52
--- NOTE | 2018-11-14 13:10 | NUR ---
RESTING WELL. EASILY AROUSED. NO DISTRESS. CALL LIGHT WITHIN REACH.
--- NOTE | 2018-11-14 13:42 | NUR ---
5 CC AIR RELEASED FROM TR BAND. CONTINUES TO REST WELL. BP 99/56. IV FLUIDS CONTINUE TO INFUSE. CALL LIGHT WITHIN REACH. NO DISTRESS.
--- NOTE | 2018-11-14 14:05 | NUR ---
TR BAND RELEASED FROM RIGHT WRIST. NO BLEEDING FROM SITE. 2X2 GAUZE APPLIED AND SECURED WITH CLEAR TEGADERM DRESSING. IV FLUIDS CONTINUE TO INFUSE ORDERED. NO VISITORS AT BEDSIDE. CALL LIGHT WITHIN REACH. NO DISTRESS. BP 96/58, PULSE 64
--- NOTE | 2018-11-14 15:09 | NUR ---
SPOKE WITH PATIENTS MOTHER TO CLARIFY MEDICATION QUESTION. INFORMED HER THAT PATIENT DOES NOT HAVE AN ORDER TO GO HOME ON PLAVIX. PATIENT MOTHER THANKED THIS HEAVY REPAIRER FOR CALLING HER BACK.
--- NOTE | 2018-11-14 15:29 | NUR ---
20 GAUGE IV REMOVED FROM RIGHT FOREARM. CATHETER TIP INTACT. NO BLEEDING FROM SITE. 2X2 GUAZE APPLIED AND SECURED WITH BANDAID. TOLERATED IV REMOVAL WELL.
--- NOTE | 2018-11-14 15:40 | NUR ---
DISCHARGE INSTRUCTIONS PROVIDED TO PATIENT AND HIS GIRLFRIEND. MUCH TIME SPENT EMPHASIZING THE IMPORTANCE OF FOLLOWING DISCHARGE INSTRUCTIONS. NOTE PROVIDED TO PATIENT TO RETURN TO WORK ON 11/18/18 PATIENT LIFTS HEAVY BOXES FOR A LIVING AND IS UNALBE TO LIFT FOR 4 DAYS WITH RIGHT WRIST DUE TO HEART CATH. PATIENT AND GIRLFRIEND VERBALIZED UNDERSTANDING OF PATIENT INSTRUCTIONS.
--- NOTE | 2018-11-14 16:00 | NUR ---
PATIENT DENIED WHEELCHAIR. PATIENT REQUESTED TO AMBULATE OFF UNIT. PATIENT LEFT UNIT IN NO ACUTE DISTRESS. PATIENT DISCHARGED TO HOME. PATIENT LEFT UNIT WITH ALL PERSONAL BELONGINGS.
--- NOTE | 2018-11-15 08:43 | MORECARE ---
CASE MANAGEMENT DISCHARGE SUMMARY PATIENT: NOEMI LOYD UNIT: [id number] ADM DATE: 11/12/18 AGE: 42 : [birth year] SEX: M ROOM/BED: D.2107 AUTHOR: BERTA SINGH PHYSICIAN: REFERRING PHYSICIAN: RENETTA MORENO MD DATE OF SERVICE: 11/15/18 Discharge Plan Patient Name: [facility]YD [facility] [facility] 1975 Planned Disposition: Home Anticipated Discharge Date: 11/14/18 Discharge Date: 11/14/2018 Expected LOS: 2 Initial Reviewer: [email or web address] Initial Review Date: 11/15/2018 Generated: 11/15/18 9:43 am Patient Name: NOEMI LOYD Page 78122 at 0843 All edits/amendments must be made on the electronic document DICTATION DATE: 11/15/1842 SLOPE TENDER: DALTON 11/15/18 0842 RPT#: [id number] DC DATE:11/14/18 STATUS: DIS IN [facility] [address] [place] [address] END OF REPORT
--- NOTE | 2018-11-19 16:41 | ST ---
PATIENT:NOEMI LOYD MEDICAL RECORD: [id number] SEX: M LOCATION:D. D.210 ORDER #: ADMISSION DATE: 11/12/18 AGE OF PATIENT: 42 REFERRING PHYSICIAN: INTERPRETING PHYSICIAN: HAI ROSARIO MD DATE OF SERVICE: 11/13/2018 PROCEDURE: Nuclear stress test. INDICATION: Chest pain compatible with angina. PROCEDURE: The patient was exercised on standard Lexiscan protocol with 32 mCi of sestamibi injected at peak stress, 12 mCi used previously for rest images. FINDINGS: Gated SPECT reveals preserved ejection fraction at 59% with good wall motioning and thickening and brightening throughout all segments. SPECT imaging: Cardiolite was used as a myocardial perfusion agent. There are definite reversible changes inferiorly. This includes the basal, mid, apical, inferior segments. The degree of reversibility is severe. The amount of myocardium involved is moderate. OVERALL IMPRESSION: 1. This is an abnormal nuclear stress test with reversibility inferiorly. 2. Gated SPECT reveals preserved ejection fraction at 59%. In this patient with ongoing symptomatology, the current scan does suggest the presence of hemodynamically significant coronary artery disease. We will proceed with coronary angiography as a followup study due to continued chest pain. TRANSINT:[id number] Voice Confirmation ID: [id number] DOCUMENT ID: [id number] HAI ROSARIO MD at 1641 CC: [id number] DICTATION DATE: 11/13/18 1209 DIRECTOR LABOR STANDARDS: 11/13/18 1216 DIS IN 11/14/[address] [facility] [address] [place] [address]
--- NOTE | 2018-11-19 16:41 | CN ---
PATIENT NAME:NOEMI PICKETT MEDICAL RECORD: [id number] : 73 LOCATION:D. D.2107 ADMIT DATE: 11/12/18 ACCOUNT: [id number] CONSULTING PHYSICIAN: HAI ROSARIO MD REFERRING PHYSICIAN: RENETTA MORENO MD DATE OF CONSULTATION: 11/12/2018 ADMITTING DIAGNOSES: 1. Chest pain. 2. Abnormal ECG. 3. Hypertension. 4. Smoking history. 5. Chronic obstructive pulmonary disease. 6. Near syncope/dizziness. 7. Generalized weakness. 8. Gastroesophageal reflux disease. HISTORY OF PRESENT ILLNESS: Mr. Pickett has not had a cardiac history. He has risk factors as above. He had an episode of acute confusion. This was felt to be secondary to opioid use, but he developed chest pain. His EKG is abnormal, possibly compatible with pericarditis. There are significant ST-T abnormalities throughout. He is still having the pain today. It is not nearly as bad as it was last night. His troponins are normal. PHYSICAL EXAMINATION: GENERAL APPEARANCE: Well-nourished, well-developed, appears stated age. Level of distress, comfortable. PSYCHIATRIC: Mental status, alert, normal affect. Orientation, oriented to time, place and person. EYES: Lids and conjunctiva, noninjected. No discharge, no pallor. ENT: Lips, teeth, gums, normal dentition. Oropharynx, no cyanosis, no pallor. NECK: Carotid arteries, bilateral normal upstroke, no bruits, no thrills. JUGULAR VEINS: No jugular venous pressure or distention. CERVICAL LYMPH NODES: Nontender, nonenlarged. THYROID: Not enlarged. Nontender. No nodules. LUNGS: Respiratory effort, unlabored. CHEST: Normal curvature. No thoracic deformity. No chest wall tenderness. Percussion, resonant. Auscultation, clear. No wheezes, no rales, no rhonchi. CARDIOVASCULAR: Precordial exam, nondisplaced. No heaves or pericardial thrills. Rate and rhythm, regular. Heart sounds, normal S1, normal S2. No S3, no gallop, no rub. Systolic murmur, not heard. Diastolic murmur, not heard. EXTREMITIES: No cyanosis, no edema. Peripheral pulses, full and equal in all extremities, except as noted. No bruits appreciated. ABDOMEN: Soft, nondistended. Normal aorta. No bruit. Nontender. No masses. Liver, nontender, no hepatomegaly. Spleen, nontender, no splenomegaly. MUSCULOSKELETAL: No joint tenderness. No joint swelling. No erythema. NEUROLOGICAL: Normal gait, normal strength, normal tone. SKIN: Warm and dry. OVERALL IMPRESSION: Chest discomfort of unknown etiology. Due to his lungs, he cannot exercise on a treadmill, but we will be able to do a pharmacologic stress testing as risk stratification. Further care depends upon the findings of the Lexiscan. Echocardiogram is as well pending to evaluate pericarditis and pericardium. CONSULT REPORT [id number] NOEMI PICKETT TRANSINT:[id number] Voice Confirmation ID: [id number] DOCUMENT ID: [id number] HAI ROSARIO MD at 1641 CC: [id number] DICTATION DATE: 11/12/18 1351 GARAGE DOOR INSTALLER: 11/12/18 1412 DIS IN 11/14/18 [place] [id number] [place] [address]
--- NOTE | 2018-11-19 16:41 | ST ---
PATIENT:NOEMI LOYD MEDICAL RECORD: [id number] SEX: M LOCATION:D. D.210 ORDER #: ADMISSION DATE: 11/12/18 AGE OF PATIENT: 42 REFERRING PHYSICIAN: INTERPRETING PHYSICIAN: HAI ROSARIO MD DATE OF SERVICE: PROCEDURE: Nuclear stress test. The patient was exercised on standard Lexiscan protocol with 32 mCi of sestamibi injected at peak stress, rest images done previously for rest images. FINDINGS: Gated SPECT reveals a preserved ejection fraction of greater than 70% with good wall motioning and thickening and brightening throughout all segments. SPECT imaging: Cardiolite was used as myocardial perfusion agent. There is a relatively large area of severe ischemia throughout the inferior and apical segments. This includes basal, mid, apical, inferior segments as well as the apex itself. The degree of reversibility is severe. OVERALL IMPRESSION: 1. This is a significantly abnormal nuclear stress test, relatively large area of severe ischemia inferiorly and apically. 2. Gated SPECT reveals preserved ejection fraction of greater than 70%. In this patient with ongoing symptomatology, the current scan does suggest the presence of hemodynamically significant coronary artery disease. TRANSINT:[id number] Voice Confirmation ID: [id number] DOCUMENT ID: [id number] HAI ROSARIO MD at 1641 CC: [id number] DICTATION DATE: 11/15/18 1219 MORNING BABYSITTER: 11/16/18 0445 DIS IN 11/14/18 [place] [id number] [place] [address]
--- NOTE | 2018-11-19 16:41 | OP ---
PATIENT NAME: NOEMI LOYD MEDICAL RECORD: [id number] :73 LOCATION:D.M2 D.2107 ADMISSION DATE:11/12/18 SURGEON: HAI ROSARIO MD DATE OF OPERATION: 11/14/2018 PROCEDURES: 1. Left heart catheterization. 2. Selective coronary angiography. 3. Left ventriculogram. INDICATION: Chest pain, abnormal nuclear stress test. PROCEDURE IN DETAIL: After informed consent was obtained with detailed description of risks and benefits as well as alternative therapies, the patient elected to proceed with angiogram and heart catheterization. The right radial area was prepped and draped in normal sterile fashion. The right radial artery was cannulated via modified Seldinger technique with placement of 5-Albanian sheath. All catheters were exchanged through this sheath. FINDINGS: The left ventriculogram performed in standard 30-degree MILLS view reveals good cardiac wall motion throughout all segments. Overall ejection fraction is estimated at 60%. SELECTIVE CORONARY ANGIOGRAPHY: Left main, left anterior descending, left circumflex, and right coronary artery are smooth-walled vessels with no angiographic evidence of coronary artery disease. OVERALL IMPRESSION: 1. No angiographic evidence of coronary artery disease. 2. Normal left heart pressures. 3. Normal left ventricular systolic function. Chest pain is noncardiac in etiology. No further cardiac workup needs to be ascertained. TRANSINT:[id number] Voice Confirmation ID: [id number] DOCUMENT ID: [id number] HAI ROSARIO MD at 1641 CC: [id number] DICTATION DATE: 11/14/18 1222 WELL LOGGING CAPTAIN: 11/14/182014 DIS IN 11/14/18 [place] [id number]
--- NOTE | 2018-11-19 16:41 | EC ---
PATIENT:NOEMI LOYD DATE OF SERVICE: 11/12/18 SEX: M MEDICAL RECORD: [id number] DATE OF : 73 LOCATION:D.M2 D.210 AGE OF PATIENT: 42 ADMISSION DATE: 11/12/18 REFERRING PHYSICIAN: INTERPRETING PHYSICIAN: HAI CEDILLO MD ECHOCARDIOGRAM REPORT ECHO CHARGES 4 ECHO COMPLETE Date: 11/12/18 CLINICAL DIAGNOSIS: SYNCOPE, CHEST PAIN ECHOCARDIOGRAPHIC MEASUREMENTS (adult normal given) AC root (d.<3.7cm) 4.2 cm LV Septum d (<1.2 cm> 1.2 cm Valve Excursion 1.5 cm LV Septum (systole) 1.7 cm Left Atria (s.<4.0cm> 3.1 cm LVPW d(<1.2cm) 1.7 cm RV (d.<2.3cm) 3.1 cm LVPW (sytole) 1.8 cm LV diastole(<5.6CM) 4.7 cm MV E-F(>70mm/sec) cm LV systole 3.5 cm LVOT Diameter 1.9 cm MV exc.(>10mm) 1.4 cm Est.ejection fraction (50-75%) % DOPPLER: LVIT cm/sec A 60.0 cm/sec E 77.0 cm/sec LA cm/sec RVSP 24 mmHg LVOT 106 cm/sec AOP1/2T m/s Asc. Ao 161 cm/sec RVOT 64 cm/sec RA cm/sec PA 89 cm/sec AV Gradient Peak 10.39mmHg AV Mean 5.64 mmHg AV Area 2.0 cm MV Gradient Peak 2.16 mmHg MV Mean 1.00 mmHg MV Area cm COMMENTS: Wood Boatbuilder Apprentice: Derek QUICK Accounting Administrative Assistant: 1 Dr. Cedillo TAPE# PACS Pericardial Effusion N DATE OF SERVICE: 11/12/2018 PROCEDURE: Echocardiogram. FINDINGS: 1. Left ventricular chamber size is within normal limits. Left ventricular systolic function is normal. Overall ejection fraction estimated at 60%. 2. Left atrium is within normal limits at 3.1 cm. Right atrium and right ventricular chamber sizes are mildly dilated. 3. Valvular structures have normal structure and motion. ECHOCARDIOGRAM REPORT [id number] NOEMI LOYD 4. Doppler interrogation reveals only trace mitral regurgitation. This is not hemodynamically significant. No other valvular insufficiency or stenosis. 5. No evidence of pericardial effusion or left ventricular thrombus. TRANSINT:[id number] Voice Confirmation ID: [id number] DOCUMENT ID: [id number] HAI CEDILLO MD at 1641 CC: [id number] DICTATION DATE: 11/12/18 1453 ICU REGISTERED NURSE: 11/12/18 1605 DIS IN 11/14/18 [place] [id number] [place] [id number]
== END 2018-11-14 16:00 | disposition home or self-care (01) ==
LOC: D.ER 02:55 → OBSVTIME 05:02 → D.M2 05:02 → D.EDHOLD 05:02 → D.M2 05:35
PROVIDERS: Family Medicine; Family Medicine Adult Medicine; ADMIT Family Medicine; ATTEND Family Medicine
DX: R07.89 Other chest pain (principal); R94.39 Abnormal result of other cardiovascular function study; I10 Essential (primary) hypertension; J44.9 Chronic obstructive pulmonary disease, unspecified; K21.9 Gastro-esophageal reflux disease without esophagitis; R53.1 Weakness; R55 Syncope and collapse; K75.9 Inflammatory liver disease, unspecified; F32.9 Major depressive disorder, single episode, unspecified; F41.9 Anxiety disorder, unspecified; G93.41 Metabolic encephalopathy

== ENCOUNTER 2018-12-06 21:29 | Emergency (ER) | payer MEDICARE ==
[~2018-12-06] VITALS: Ht 195.6 cm; Wt 78.5 kg
[~2018-12-06 21:29] MED LIST changes: +ABILIFY2 MG PO; +BUPROPION HCL150 M1 PO; +SEROQUEL50 MG PO
[2018-12-06 21:39] VITALS: Ht 195.6 cm; Wt 78.5 kg
[2018-12-06] MEDS ORDERED: HYDROCODON-ACE1 EA10 PO (21:41)
[2018-12-06] MEDS ORDERED: TORADOL10 MG PO (22:23)
[2018-12-06] MEDS ORDERED: ROBAXIN500 MG PO (22:23)
[2018-12-06 22:46] VITALS: BP 110/79
== END 2018-12-06 22:47 | disposition home or self-care (01) ==
LOC: D.ER 21:29
DX: S16.1XXA Strain of muscle, fascia and tendon at neck level, initial encounter (principal); V43.52XA Car driver injured in collision with other type car in traffic accident, initial encounter; Y93.89 Activity, other specified; Y92.410 Unspecified street and highway as the place of occurrence of the external cause; S29.012A Strain of muscle and tendon of back wall of thorax, initial encounter

== ENCOUNTER 2019-01-22 02:03 | Emergency (ER) | payer MEDICARE ==
[~2019-01-22] VITALS: Ht 195.6 cm; Wt 78.6 kg
[~2019-01-22 02:03] MED LIST changes: +HYDROCODON-ACE1 EA10 PO
[2019-01-22 02:08] VITALS: Ht 195.6 cm; Wt 78.6 kg
[2019-01-22] MEDS ORDERED: DICLOFENAC SODI50 MG PO (02:24)
[2019-01-22 02:51] VITALS: BP 120/77
== END 2019-01-22 02:52 | disposition home or self-care (01) ==
LOC: D.ER 02:03
DX: M54.6 Pain in thoracic spine (principal); M79.641 Pain in right hand; F17.200 Nicotine dependence, unspecified, uncomplicated; J44.9 Chronic obstructive pulmonary disease, unspecified